=== PATIENT | female | born 1945 | race Caucasian/White ===

== ENCOUNTER → 2020-08-14 09:24 | Outpatient (CLI) | payer MEDICARE, OTHER, SELFPAY | PROVIDERS: Visit Provider Ophthalmology | DX: Z01.812 Encounter for preprocedural laboratory examination (principal); Z20.822 Contact with and (suspected) exposure to COVID-19; H25.012 Cortical age-related cataract, left eye | CPT/HCPCS: U0003 ==

== ENCOUNTER 2020-08-17 08:09 | Day surgery (SDC) | payer MEDICARE, OTHER, SELFPAY ==
[2020-08-11 12:12] VITALS: BMI 29.8
[2020-08-17 08:38] VITALS: BP 150/68; PULSE 72; RESP 17; O2SAT 98
[2020-08-17 09:01] LABS: POC Glucose,Bedside 226 (70-110)
[2020-08-17 10:07] VITALS: BP 136/59; PULSE 68; RESP 16; O2SAT 99
[2020-08-17 10:12] VITALS: BP 132/59; PULSE 68; RESP 16; O2SAT 100
[2020-08-17 10:17] VITALS: BP 129/60; PULSE 68; RESP 16; O2SAT 100
[2020-08-17 10:22] VITALS: BP 135/59; PULSE 67; RESP 16; O2SAT 100
[2020-08-17 10:26] VITALS: BP 138/74; PULSE 73; RESP 16; TEMP 36.2; O2SAT 96
== END 2020-08-17 10:35 | disposition home or self-care (01) ==
LOC: OR 08:12
PROVIDERS: PCP Nurse Practitioner Family; Visit Provider Ophthalmology
DX: H25.813 Combined forms of age-related cataract, bilateral (principal); H02.834 Dermatochalasis of left upper eyelid; H02.831 Dermatochalasis of right upper eyelid; E11.9 Type 2 diabetes mellitus without complications; F41.9 Anxiety disorder, unspecified; I48.91 Unspecified atrial fibrillation; F32.9 Major depressive disorder, single episode, unspecified; Z79.899 Other long term (current) drug therapy; Z88.2 Allergy status to sulfonamides
CPT/HCPCS: 66984; 82962; V2632

== ENCOUNTER → 2020-09-13 12:50 | Outpatient (CLI) | payer MEDICARE, OTHER, SELFPAY | PROVIDERS: Visit Provider Ophthalmology | DX: Z01.812 Encounter for preprocedural laboratory examination (principal); Z20.822 Contact with and (suspected) exposure to COVID-19 | CPT/HCPCS: U0003 ==

== ENCOUNTER 2020-09-14 06:41 | Day surgery (SDC) | payer MEDICARE, OTHER, SELFPAY ==
[2020-09-07 11:14] VITALS: BMI 28.7
[2020-09-14] VITALS (7 sets, daily range): BP systolic 113–137; BP diastolic 48–60; PULSE 59–72; RESP 16–20; TEMP 36.6; O2SAT 93–100
[2020-09-14 07:19] LABS: POC Glucose,Bedside 201 (70-110)
== END 2020-09-14 08:28 | disposition home or self-care (01) ==
LOC: OR 06:43
PROVIDERS: PCP Nurse Practitioner Family; Visit Provider Ophthalmology
DX: H25.813 Combined forms of age-related cataract, bilateral (principal); H02.831 Dermatochalasis of right upper eyelid; H02.834 Dermatochalasis of left upper eyelid; F41.9 Anxiety disorder, unspecified; I48.91 Unspecified atrial fibrillation; F32.9 Major depressive disorder, single episode, unspecified; E11.9 Type 2 diabetes mellitus without complications; Z88.2 Allergy status to sulfonamides; Z79.84 Long term (current) use of oral hypoglycemic drugs; Z79.899 Other long term (current) drug therapy
CPT/HCPCS: 66984; 82962; V2632